=== PATIENT | male | born 1990 | race Caucasian/White ===

== ENCOUNTER 2017-08-05 19:24 | Emergency (ER) | payer MEDICAID ==
[2017-08-05] MEDS: ASPIRIN 325 MG TAB PO (21:25)
[2017-08-05] MEDS: LORAZEPAM 1 MG TAB PO (21:25)
== END 2017-08-05 21:38 | disposition home or self-care (01) ==
LOC: FTE 19:24
DX: M94.0 Chondrocostal junction syndrome [Tietze] (principal)
CPT/HCPCS: 93005; 99283-25